=== PATIENT | male | born 1980 | race Caucasian/White ===

== ENCOUNTER 2020-12-20 18:15 | Emergency (ER) | payer SELFPAY ==
[~2020-12-20] VITALS: Ht 165.1 cm; Wt 80.0 kg
[2020-12-20 18:22] VITALS: BP 130/90
[2020-12-20] MEDS ORDERED: SODIUM CHLORIDE 0.9% 1,000 ML IV ONE (18:45)
== END 2020-12-20 18:56 | disposition left against medical advice (07) ==
LOC: ER 18:15
DX: S09.90XA Unspecified injury of head, initial encounter (principal); F10.129 Alcohol abuse with intoxication, unspecified; R41.82 Altered mental status, unspecified; W18.39XA Other fall on same level, initial encounter; Y93.89 Activity, other specified; Y92.89 Other specified places as the place of occurrence of the external cause; Y99.8 Other external cause status; Y90.9 Presence of alcohol in blood, level not specified
CPT/HCPCS: 99283; J7030